=== PATIENT | female | born 1995 | race Caucasian/White ===

== ENCOUNTER → 2023-10-04 | Outpatient (CLI) | payer SELFPAY ==
[~2023-10-04] VITALS: Ht 170.2 cm; Wt 117.0 kg
[~2023-10-04] MED LIST: ONDANSETRON HYDR4 MG PO
== END ==
LOC: CARDREHAB 08:47
DX: R07.9 Chest pain, unspecified (principal); R94.31 Abnormal electrocardiogram [ECG] [EKG]
CPT/HCPCS: A9500